=== PATIENT | male | born 1955 | race Caucasian/White ===

== ENCOUNTER 2021-03-31 09:55 | Emergency (ER) | payer MEDICARE, OTHER, SELFPAY ==
[2021-03-31 10:11] VITALS: BP 173/81; PULSE 67; RESP 18; TEMP 36.2; O2SAT 97; BMI 32.5
--- NOTE | 2021-03-31 10:34 | ED.GENADULT ---
HPI - General Adult General Chief complaint: Trauma Stated complaint: RT EYE BRUISING POST FALL OUT OF BED Time Seen by Provider: 03/31/21 10:19 Source: patient Mode of arrival: Ambulatory Limitations: no limitations History of Present Illness HPI narrative: Patient is a 65-year-old male. Is on Plavix. Is here for evaluation after being sent over from the walk-in clinic because of bruising around his right eye. He states that last evening he hit his head on the nightstand. He rolled out of bed and hit his head. There was no loss of consciousness. He reports no other injuries from the event. No neck pain. Related Data Home Medications Medication Instructions Recorded Confirmed amlodipine 10 mg tablet 10 mg PO QAM 03/31/21 03/31/21 atorvastatin 40 mg tablet 40 mg PO QAM 03/31/21 03/31/21 clopidogrel 75 mg tablet 75 mg PO QAM 03/31/21 03/31/21 cyclobenzaprine 5 mg tablet 5 mg PO DAILY 03/31/21 03/31/21 ezetimibe 10 mg tablet 10 mg PO BEDTIME 03/31/21 03/31/21 metoprolol succinate 200 mg 200 mg PO BEDTIME 03/31/21 03/31/21 tablet,extended release 24 hr sertraline 50 mg tablet 50 mg PO QAM 03/31/21 03/31/21 Allergies Allergy/AdvReac Type Severity Reaction Status Date / Time Sulfa (Sulfonamide Allergy Severe Shakiness Verified 03/31/21 10:14 Antibiotics) Review of Systems Constitutional Constitutional: Denies headache(s) Eyes Eyes: Reports as per HPI and Reports system reviewed and no additional complaints, except as documented Comments: No blurry vision, no double vision ENT Ears, Nose, Mouth, and Throat: Denies headache(s) Comments: No neck pain, no nose bleeds Musculoskeletal Comments: No neck pain, no joint pain Integumentary/Breasts Comments: Bruising around the right eye Neurologic Neurologic: Denies headache(s) Hematologic/Lymphatic Comments: On Plavix Patient History Medical History High cholesterol Social History Smoking Status: Former smoker Smoking Status: Former smoker alcohol intake frequency: 3 or more drinks per day Substance Use Type: does not use Exam Initial Vital Signs Initial Vital Signs: Vital Signs Temperature 97.1 F L 03/31/21 10:11 Pulse Rate 67 03/31/21 10:11 Respiratory Rate 18 03/31/21 10:11 Blood Pressure 173/81 H 03/31/21 10:11 Pulse Oximetry 97 03/31/21 10:11 Const General: cooperative, comfortable, well developed and well groomed HENKY Ears: hearing grossly normal bilaterally and TM's normal bilaterally Nose: external nose normal, nares normal and No nasal discharge Face and sinus: no maxillary instability and other Mouth: oral mucosae normal Throat: posterior oropharynx normal Eyes Pupils: PERRL EOM: EOM intact bilaterally Other: There is tenderness to palpation around the orbital rim however there are no step-offs. He does have a right-sided subconjunctival hemorrhage on the nasal aspect of the eye. There is no hyphema noted. No active bleeding. Resp Effort & Inspection: normal respiratory effort Cardio Palpation: normal PMI Back/Spine/Pelvis Cervical Spine: No cervical spinal tenderness Skin Other: Bruising around the right eye Neuro General: patient alert, patient awake and patient oriented x3 Extrem General: normal to inspection Scores GCS Stanton coma scale eye opening: Spontaneous Stanton coma scale verbal response: Orientated Stanton coma scale motor response: Obey commands Moira coma scale total score: 15 Course Vital Signs Vital signs: Vital Signs - 8 hr 03/31/21 10:11 Temperature 97.1 F L Pulse Rate 67 Respiratory Rate 18 Blood Pressure 173/81 H Pulse Oximetry 97 Medical Decision Making [facility] Narrative Medical decision making narrative: Patient does have ecchymosis around the right eye and also has a subconjunctival hemorrhage of the right eye. No hyphema noted. I have low suspicion for orbital rim fracture. I did discuss potentially doing a CT scan with the patient over he declined. He has no neck pain. No other injuries from the event. Will hold on further workup for now. He was given expected course of treatment and return precautions and follow-up instructions. He expressed understanding and agreement. Discharge Plan Departure Patient Disposition: Home Clinical Impression: Subconjunctival hemorrhage of right eye, Contusion of eye, right Instructions: Eye Contusion Activity Restrictions/Additional Instructions: I do recommend that you put ice over your right eye. The swelling and the bruising could worsen over the next couple days. I could end up causing your eye to be swollen shut. Contact your primary doctor for a follow-up. Return to the emergency department for any new or worsening symptoms Prescriptions: No Action atorvastatin 40 mg tablet 40 mg PO QAM RF: 0 metoprolol succinate 200 mg tablet extended release 24 hr 200 mg PO BEDTIME RF: 0 clopidogrel 75 mg tablet 75 mg PO QAM RF: 0 amlodipine 10 mg tablet 10 mg PO QAM RF: 0 sertraline 50 mg tablet 50 mg PO QAM RF: 0 ezetimibe 10 mg tablet 10 mg PO BEDTIME RF: 0 cyclobenzaprine 5 mg tablet 5 mg PO DAILY RF: 0 Referrals: Papa Andersen MD [Primary Care Provider] -
[2021-03-31 10:51] VITALS: BP 135/76; PULSE 63; RESP 14; O2SAT 99
== END 2021-03-31 10:53 | disposition home or self-care (01) ==
PROVIDERS: Emergency Provider Emergency Medicine; PCP Internal Medicine
DX: H11.31 Conjunctival hemorrhage, right eye (principal); S00.11XA Contusion of right eyelid and periocular area, initial encounter; W06.XXXA Fall from bed, initial encounter; Z79.01 Long term (current) use of anticoagulants
CPT/HCPCS: 99282; 99283

== ENCOUNTER → 2021-04-15 12:00 | Outpatient (CLI) | payer MEDICARE, OTHER, SELFPAY | PROVIDERS: PCP Internal Medicine; Referring Provider Internal Medicine; Visit Provider Internal Medicine | DX: R74.01 Elevation of levels of liver transaminase levels (principal); Z53.8 Procedure and treatment not carried out for other reasons ==

== ENCOUNTER → 2021-07-13 09:41 | Outpatient (CLI) | payer MEDICARE, OTHER, SELFPAY ==
--- NOTE | 2021-07-13 | DI.US.S_ITS ---
PROCEDURE: US ABDOMEN COMPLETE INDICATIONS: Elevation of levels of liver transaminase levels TECHNIQUE: Real-time scanning was performed of the abdominal and retroperitoneal organs, with image documentation. COMPARISON: None. FINDINGS: Liver: Liver is diffusely increased in echogenicity. Hypoechoic complex within the right lobe measuring 1.7 x 1.4 x 1.7 cm. Mild posterior acoustic enhancement is present. Gallbladder: No gallstones identified. Normal gallbladder wall. No pericholecystic fluid. Negative sonographic Whitfield sign. Biliary ducts: Intrahepatic bile ducts are non-dilated. Extrahepatic bile duct caliber measures 3.7 mm. Normal is 6-7 mm or less in diameter, or 10 mm or less post-cholecystectomy. Pancreas: Visualized portions of the pancreas are sonographically normal. Spleen: Spleen is enlarged at 13.6 cm in size and homogeneous in echotexture. Kidneys: Kidneys are normal in size and echotexture. Right kidney measures 10.5 cm long; left kidney measures 12.6 cm long. No hydronephrosis or nephrolithiasis. No solid masses. Aorta: Visualized aorta is normal in caliber at less than 3 cm. Iliacs: Proximal common iliac arteries are normal in caliber at less than 2.5 cm. IVC: Intrahepatic inferior vena cava is patent. Miscellaneous: No free abdominal fluid. IMPRESSION: 1. Increased hepatic echogenicity noted possibly related to hepatic steatosis but other sources of hepatocellular disease cannot be excluded. Recommend clinical correlation. 2. Hypoechoic complex mass involving the right lobe of the liver measuring up to 1.7 cm. Hepatic protocol MRI with and without contrast is recommended for further assessment. Dictated by: Shen ADAM Interpreted: Pranav Mike MD on 07/13/2021 at 10:15 Transcribed by: JOAN on 07/13/2021 at 10:18 Approved by: Pranav Mike M.D. on 07/13/2021 at 10:19
== END ==
PROVIDERS: PCP Internal Medicine; Referring Provider Internal Medicine; Visit Provider Internal Medicine
DX: K76.9 Liver disease, unspecified (principal); R74.01 Elevation of levels of liver transaminase levels
CPT/HCPCS: 76700

== ENCOUNTER → 2021-07-28 13:58 | Outpatient (CLI) | payer MEDICARE, OTHER, SELFPAY ==
--- NOTE | 2021-07-28 | DI.MRI.S_ITS ---
PROCEDURE: MR ABDOMEN WO/W CON INDICATIONS: HEPATIC PROTOCOL TECHNIQUE: Coronal HASTE, axial 2D FLASH in- and emm-hs-tadtb; axial breath-hold T2 FSE. Dynamic axial VIBE during the administration of contrast; post-contrast coronal VIBE or 2D FLASH with fat saturation from the hepatic dome to the iliac crests. Optional diffusion weighted imaging and ADC may be performed. COMPARISON: [facility], US, US ABDOMEN COMPLETE, 07/13/2021, 9:43. FINDINGS: Image quality: Good, however there is motion on a few sequences.. Lung bases: No basal pleural effusions. Heart size is normal. Solid organs: Mildly enlarged liver with moderate signal drop on T1 out of phase imaging. Centrally in the right hepatic lobe, segment VIII, 1.7 x 1.3 x 1.7 cm T2 hyperintense lesion is present with a thin wall and faint, wispy adjacent T2 parenchymal hyperintensity. Postcontrast, there is discontinuous peripheral arterial enhancement of the lesion with subsequent wash-in on venous phase and delayed phase sequences. There is peripheral hypoenhancement on venous and delayed phase sequences. No other liver lesions are present. The spleen is elongated measuring 14.7 cm in length. The gallbladder is decompressed. Biliary tree is nondilated. Pancreas is normal. There are no adrenal masses. Kidneys uptake IV contrast uniformly and symmetrically. No hydronephrosis. Nodes and vessels: No retroperitoneal or mesenteric adenopathy by size criteria. Aorta and inferior vena cava are normal in size. Bowel and peritoneum: Unenhanced bowel loops are normal in caliber. No free fluid. Bones and soft tissues: No ventral hernias. Bone marrow is normal in overall signal. IMPRESSION: 1. 1.7 cm hepatic T2 hyperintensity with characteristics most consistent with a cavernous hemangioma on a background of moderate hepatic steatosis. 2. Mild splenomegaly. Dictated by: Triny Montez M.D. on 07/28/2021 at 17:14 Approved by: Triny Montez M.D. on 07/28/2021 at 17:21
== END ==
PROVIDERS: PCP Internal Medicine; Referring Provider Internal Medicine; Visit Provider Internal Medicine
DX: K76.0 Fatty (change of) liver, not elsewhere classified (principal); D18.09 Hemangioma of other sites; R16.1 Splenomegaly, not elsewhere classified
CPT/HCPCS: 74183; A9579

== ENCOUNTER → 2022-03-10 13:39 | Outpatient (CLI) | payer MEDICARE, OTHER, SELFPAY ==
--- NOTE | 2022-03-10 | DI.RAD.S_ITS ---
PROCEDURE: XR KNEE RT 1TO2V INDICATIONS: CHRONIC PAIN OF BOTH KNEES TECHNIQUE: 1 views of the knee were acquired. COMPARISON: [facility], CR, XR KNEE LT 3V, 03/10/2022, 13:58. FINDINGS: Bones: No fractures or dislocations. No suspicious bony lesions. Mild narrowing of the medial femorotibial joint. Soft tissues: No suspicious soft tissue calcifications. IMPRESSION: Mild medial femoral tibial joint degeneration. Dictated by: Shen Pacheco [facility] Interpreted: Song Sorenson MD on 03/10/2022 at 14:14 Transcribed by: JAYNA on 03/10/2022 at 14:15 Approved by: Song Sorenson M.D. on 03/10/2022 at 21:25
--- NOTE | 2022-03-10 | DI.RAD.S_ITS ---
PROCEDURE: XR KNEE LT 3V INDICATIONS: CHRONIC PAIN OF BOTH KNEES TECHNIQUE: 3 views of the knee were acquired. COMPARISON: None. FINDINGS: Bones: No fractures or dislocations. No suspicious bony lesions. Mild tricompartmental knee joint space narrowing with minimal periarticular osteophyte formation. Soft tissues: Small joint effusion. No suspicious soft tissue calcifications. Vascular calcifications indicate atherosclerosis. IMPRESSION: Small knee joint effusion and mild tricompartmental knee joint degeneration. Dictated by: Shen Pacheco [facility] Interpreted: Song Sorenson MD on 03/10/2022 at 14:15 Transcribed by: JAYNA on 03/10/2022 at 14:16 Approved by: Song Sorenson M.D. on 03/10/2022 at 21:25
--- NOTE | 2022-03-10 13:42 | DI.US.S_ITS ---
PROCEDURE: US ABD AORTA ANEURYSM SCREEN INDICATIONS: Encounter for screening of cardiovascular disorder TECHNIQUE: Real time scanning was performed of the aorta and iliac arteries, with image documentation. COMPARISON: [facility], MR, MR ABDOMEN WO/W CON, 07/28/2021, 14:13. [facility], US, US ABDOMEN COMPLETE, 07/13/2021, 9:43. FINDINGS: Aorta: Proximal aortic diameter measures 2.7 cm. Mid-aorta measures 1.9 cm. Distal aortic diameter is 1.6 cm. Iliac arteries: Right common iliac artery measures 1.3 cm. Left common iliac artery measures 1.4 cm. IMPRESSION: No abdominal aortic aneurysm visualized. Dictated by: Shen Pacheco [facility] Interpreted: Song Sorenson MD on 03/10/2022 at 14:16 Transcribed by: JAYNA on 03/10/2022 at 14:17 Approved by: Song Sorenson M.D. on 03/10/2022 at 21:28
== END ==
PROVIDERS: PCP Internal Medicine; Referring Provider Internal Medicine; Visit Provider Internal Medicine
DX: Z13.6 Encounter for screening for cardiovascular disorders (principal); M25.561 Pain in right knee; M25.562 Pain in left knee; M25.462 Effusion, left knee; M17.0 Bilateral primary osteoarthritis of knee; G89.29 Other chronic pain
CPT/HCPCS: 73560; 73562; 76706

== ENCOUNTER → 2022-05-03 14:05 | Outpatient (CLI) | payer MEDICARE, OTHER, SELFPAY ==
[2022-05-03 16:32] LABS: COVID19 -Nasal RAPID Negative (Negative)
== END ==
PROVIDERS: PCP Internal Medicine; Visit Provider Surgery
DX: Z01.812 Encounter for preprocedural laboratory examination (principal); Z20.822 Contact with and (suspected) exposure to COVID-19
CPT/HCPCS: 87635; C9803

== ENCOUNTER 2022-05-04 11:44 | Day surgery (SDC) | payer MEDICARE, OTHER, SELFPAY ==
--- NOTE | 2022-05-04 | PATH_ITS ---
[facility] Accession Number: [id number] No. of containers..01 Tissue . 01 Material submitted: . colon - DESCENDING COLON MASS . 01 Diagnosis: Descending Colon Mass, Biopsy: Invasive adenocarcinoma, moderately differentiated. Lymphovascular invasion not identified. MRV 05/06/2022 1744 Local . 01 Comment: Immunohistochemical stains for DNA mismatch repair proteins are pending, and results will be issued in an addendum. . As part of routine cloth tester quality, Dr. Gonzalez has reviewed this case and agrees with the diagnosis of invasive adenocarcinoma. The finding of invasive adenocarcinoma was reported to the physician carbon blocks press operator, Dr. Resendez by Dr. Casillas on 05/07/2022. . 01 Electronically signed: . Boogie Casillas MD, PhD, Pathologist NPI- [id number] . 01 Gross description: . DESCENDING COLON MASS: Received in formalin are multiple fragment(s) of villaseñor, soft tissue measuring 1.0 x 0.2 x 0.1 cm in aggregate submitted entirely in 1 cassette(s) /CPE 05/05/2022 0753 Local . 01 Pathologist provided ICD-10: C18.6 . 01 CPT . 187316, L37302, K45366 Specimen Comment: A courtesy copy of this report has been sent to [phone] Performed at: 01 [facility] [address] [place] [address], [place], [place] [id number] MD Zoran Ventura MD Phone: [phone]
[2022-05-04 12:15] VITALS: BP 150/81; PULSE 80; RESP 16; TEMP 36.4; O2SAT 98; BMI 32.5
[2022-05-04] MEDS: LACTATED RINGERS 1,000 ML 42 ML IV (12:41)
--- NOTE | 2022-05-04 12:44 | PM.HP.1 ---
History of Present Illness History of Present Illness Chief complaint: [facility] Narrative: Positive Cologuard Patient History Medical History High cholesterol Family & Social History Social History: household members spouse Tobacco & Substance use: Smoking Status Former smoker alcohol intake frequency 3 or more drinks per day Substance Use Type does not use Meds Home Medications and Allergies Home Medications Medication Instructions Recorded Confirmed Type amlodipine 10 mg tablet 10 mg PO QAM 03/31/21 05/04/22 History atorvastatin 40 mg tablet 40 mg PO QAM 03/31/21 05/04/22 History ezetimibe 10 mg tablet 10 mg PO BEDTIME 03/31/21 05/04/22 History metoprolol succinate 200 mg 200 mg PO BEDTIME 03/31/21 05/04/22 History tablet,extended release 24 hr Allergies Allergy/AdvReac Type Severity Reaction Status Date / Time Sulfa (Sulfonamide Allergy Severe Shakiness Verified 05/04/22 12:09 Antibiotics) Exam Vital Signs (past 8 hours): - 05/04/22 12:15 Temperature 97.6 F Pulse Rate 80 Respiratory Rate 16 Blood Pressure 150/81 H Pulse Oximetry 98 Oxygen Delivery Method Room Air Oxygen Delivery Method Room Air Narrative Exam Narrative: Oropharynx free of lesions Chest clear to auscultation percussion Cardiac exam reveals no S3 or murmur Assessment & Plan Assessment & Plan narrative: Positive Cologuard need for colonoscopy follow-up. Risks, benefits, alternatives have been explained. Time Spent With Patient Critical Care time: I spent a total of [] minutes of critical care time on this patient's care today; this time is exclusive of procedural time.
--- NOTE | 2022-05-04 12:45 | PM.OP.COLON ---
Operative Date/Time/Diagnoses Date of procedure: 05/04/22 Pre-op diagnosis: See indication and findings Procedure & Clinicians Study performed: Colonoscopy Indications: Positive Cologuard Surgeon: Bernie Ortiz Procedure Notes Procedure in detail: After informed consent was obtained the patient was placed in left lateral decubitus position. The vide colonoscope was placed into the rectum slowly advanced cecum. Preparation was good. On slow withdrawal mucosa was carefully examined. The scope was removed. The patient tolerated procedure well. Blood loss none Complications none Sedation propofol Findings 1. Mass lesion at 42 cm just below splenic flexure. Unable to pass with the colonoscope. Multiple biopsies taken. 2. Otherwise negative he left-sided colonoscopy. Try to get in touch with Dr. Andersen at [facility]. Left message. Will talk to patient about where he would like procedure performed and further workup such as CT scan
[2022-05-04 13:09] VITALS: BP 127/76; PULSE 94; RESP 16; TEMP 36.5; O2SAT 94
[2022-05-04 13:15] VITALS: BP 128/77; PULSE 77; RESP 16; O2SAT 96
[2022-05-04 13:19] VITALS: BP 121/52; PULSE 74; RESP 17; TEMP 36.4; O2SAT 97
[2022-05-04 13:25] VITALS: BP 133/92; PULSE 76; RESP 18; TEMP 36.4; O2SAT 97
[2022-05-04 13:50] VITALS: BP 165/89; PULSE 70; RESP 16; TEMP 36.1; O2SAT 99
== END 2022-05-04 11:55 | disposition home or self-care (01) ==
PROVIDERS: PCP Internal Medicine; Referring Provider Internal Medicine Gastroenterology; Visit Provider Internal Medicine Gastroenterology
PROC: 0DJD8ZZ Inspection of Lower Intestinal Tract, Via Natural or Artificial Opening Endoscopic (ICD-10-PCS; CPT 45378; principal; 2022-05-04 12:30)
DX: C18.6 Malignant neoplasm of descending colon (principal)
CPT/HCPCS: 45331; J2704

== ENCOUNTER → 2022-05-09 12:07 | Outpatient (CLI) | payer MEDICARE, OTHER, SELFPAY ==
[2022-05-09 17:29] LABS: BUN Creatinine Ratio 11.7 (6-22); Blood Urea Nitrogen 9 mg/dL (9-20); Estimated Glomerular Filt Rate > 60 mL/min (>60)
[2022-05-09 17:57] LABS: Carcinoembryonic Antigen 1.2 ng/mL (0.1-3.0)
== END ==
PROVIDERS: PCP Internal Medicine; Referring Provider Surgery; Visit Provider Surgery
DX: K63.89 Other specified diseases of intestine (principal)
CPT/HCPCS: 36415; 82378; 82565; 84520

== ENCOUNTER → 2022-05-10 10:04 | Outpatient (CLI) | payer MEDICARE, OTHER, SELFPAY ==
--- NOTE | 2022-05-10 11:35 | DI.CT.S_ITS ---
PROCEDURE: CT CHEST ABD PEL W CON INDICATIONS: staging colon cancer TECHNIQUE: After the administration of oral and intravenous contrast, axial sections acquired from the supraclavicular neck to the pubic symphysis. Coronal and sagittal reformats were performed. For radiation dose reduction, the following was used: automated exposure control, adjustment of mA and/or kV according to patient size. COMPARISON: [facility], MR, MR ABDOMEN WO/W CON, 07/28/2021, 14:13. FINDINGS: Image quality: Excellent. CHEST: Lower Neck: No enlarged lymph nodes. Thyroid: Unremarkable. Axillae: No enlarged lymph nodes. Chest Wall: A 1.6 cm cutaneous low-density cystic lesion is present within the skin overlying the sternum (series 2/image 26). Finding may represent a sebaceous cyst. Lungs and Airways: No consolidation or suspicious nodules. Pleura: No pneumothorax or pleural effusions. Heart: Heart size is normal. There is a small low-density pericardial effusion. Thoracic Vessels: The aorta and pulmonary arteries demonstrate normal size. Mediastinum and Nicolasa: No enlarged lymph nodes. Esophagus: No wall thickening. No hiatal hernia. ABDOMEN: Liver: The liver demonstrates normal size and overall homogeneous enhancement. A hypervascular 1.8 x 1.5 by 1.3 cm nodule is present within hepatic segment . No other suspicious hepatic lesions. Gallbladder: Unremarkable. Biliary ducts: Unremarkable. Pancreas: Unremarkable. Spleen: Unremarkable. Adrenal Glands: Unremarkable. Kidneys and Ureters: Unremarkable. Stomach and Bowel: The stomach, small bowel and colon demonstrate overall normal caliber and wall thickness. Circumferential wall thickening and mild pericolonic fat stranding is present within the distal descending colon (series 2/image 109 and series 4/image 23). There are scattered sigmoid diverticula. No evidence for diverticulitis. Peritoneum: No abnormal intraperitoneal fluid. No free air. Ventral Wall: No hernia. Abdominal Nodes: No retroperitoneal or mesenteric adenopathy by size criteria. Vessels: Aorta and inferior vena cava are normal in size. There are scattered atheromatous calcifications throughout the aorta and iliac arteries bilaterally. PELVIS: Pelvic Organs: Unremarkable. Bladder: Unremarkable. Pelvic Nodes: No enlarged lymph nodes. Miscellaneous: No inguinal hernias are seen. Bones: Superior endplate compression deformities are present at L1, T11, T10 T4 and T3. No other suspicious bony lesions. IMPRESSION: 1. Circumferential wall thickening of the distal descending colon suspicious for primary colonic neoplasm. 2. No findings to suggest metastatic disease. 3. Hemangioma of the right hepatic lobe redemonstrated. 4. Multiple superior endplate compression deformities. No prior studies are available for comparison. Please correlate with history of trauma. These all may represent chronic changes. Dictated by: Deysi Glass M.D. on 05/10/2022 at 12:40 Approved by: Deysi Glass M.D. on 05/10/2022 at 12:50
== END ==
PROVIDERS: PCP Internal Medicine; Referring Provider Surgery; Visit Provider Surgery
DX: K63.89 Other specified diseases of intestine (principal); D18.09 Hemangioma of other sites; M43.9 Deforming dorsopathy, unspecified
CPT/HCPCS: 71260; 74177

== ENCOUNTER → 2022-05-30 10:11 | Outpatient (CLI) | payer MEDICARE, OTHER, SELFPAY ==
[2022-05-30 11:09] LABS: COVID19 -Nasal RAPID Negative (Negative)
== END ==
PROVIDERS: PCP Internal Medicine; Visit Provider Surgery
DX: Z20.822 Contact with and (suspected) exposure to COVID-19 (principal); Z01.812 Encounter for preprocedural laboratory examination
CPT/HCPCS: 87635; C9803

== ENCOUNTER 2022-05-31 06:07 | Inpatient (IN) | payer MEDICARE, OTHER, SELFPAY ==
[2022-05-27 09:39] VITALS: BMI 32.5
[2022-05-31] VITALS (14 sets, daily range): BP systolic 104–139; BP diastolic 61–89; PULSE 72–94; RESP 11–22; TEMP 35.9–36.9; O2SAT 92–97; BMI 30.7
--- NOTE | 2022-05-31 | PATH_ITS ---
[facility] Accession Number: [id number] . 01 Material submitted: . colon - LEFT COLON . 01 Clinical history: . SUTURE WALL PROXIMAL . 01 Diagnosis: Left Colon, Left Hemicolectomy: Invasive moderately differentiated adenocarcinoma with the following features: Tumor size: 4.9 x 3.8 cm. Tumor extent: Tumor invades through the muscularis propria into the pericolonic tissue. Macroscopic tumor perforation: Not identified. Lymphovascular invasion: Not identified. Perineural invasion: Identified. Treatment effect: No known presurgical therapy. Margins: All margins are negative for invasive carcinoma. Regional lymph nodes: Fifteen lymph nodes, negative for metastatic carcinoma (0/15). Distant metastasis: Not applicable. Pathologic staging classification: pT3, pN0. Additional findings: One tubular adenoma and diverticulosis. MRV 06/06/2022 1320 Local . 01 Electronically signed: . Awa Marquez MD, Pathologist NPI- [id number] . 01 Gross description: . The specimen is received in formalin labeled with the patient's name, , and left colon suture wall proximal, and consists of a previously opened oriented segment of colon with a suture designating proximal per the requisition, and measuring 16.8 cm in length and approximately 2.6 cm in average diameter. The proximal margin is inked blue, the distal margin is inked black, and the mesenteric margin is inked green. The serosa is mostly obscured by yellow lobulated adipose tissue with an area of puckering and induration that is inked orange. This area of puckering correlates to a portion of the lumen not previously opened by the surgeon. The pericolonic fat extends 7.8 cm from the serosal surface. Opening the remaining specimen reveals a raised annular sessile lesion measuring 4.9 x 3.8 cm. The lesion is located 6.0 cm from the nearest proximal margin and is widely free of all remaining margins. Sectioning reveals the lesion to extend beyond the wall and into the pericolonic fat. The remaining mucosa is significant for two villaseñor polypoid structures measuring 0.2 and 0.3 cm in greatest dimension located greater than 1 cm from all margins. Also identified are multiple diverticula measuring up to 0.7 cm in depth with no perforation grossly identified. The remaining mucosa is villaseñor and velvety with normal-appearing folds. Palpation of the pericolonic fat reveals 13 villaseñor lymph node candidates ranging from 0.3 to 1.2 cm in greatest dimension. Ethylbenzene Converter Operator sections are submitted as follows: A1: Proximal margin en face. A2-A3: Distal margin en face. A4: Ethylbenzene Converter Operator radial margin en face. A5-A6: Lesion to orange inked adipose. A7-A8: Lesion to normal. A9-A10: Ethylbenzene Converter Operator lesion. A11: Two polypoid structures. A12-A13: Ethylbenzene Converter Operator diverticula. A14: Ethylbenzene Converter Operator normal mucosa. A15: Single bisected lymph node candidate to reveal a possible diverticula with fecal material. A16: Four intact lymph node candidates. A17: Four intact lymph node candidates. A18: Four intact lymph node candidates. ([id number]) . Additional palpation reveals seven additional lymph node candidates ranging from 0.2 to 0.9 cm in greatest dimension. Sections are submitted as follows: . A19: Two intact lymph node candidates. A20: Three intact lymph node candidates. A21: Two intact lymph node candidates. ([id number]) /SILVESTRE 06/03/2022 1250 Local . 01 Pathologist provided ICD-10: K63.89, C18.6 . 01 CPT . 781093 Specimen Comment: A courtesy copy of this report has been sent to [phone] Performed at: 01 [facility] [address] [place] [address], [place], [place] [id number] MD Zoran Ventura MD Phone: [phone]
[2022-05-31] MEDS: LACTATED RINGERS 1,000 ML 100 ML IV ×5 (06:54→23:56)
--- NOTE | 2022-05-31 07:42 | PM.PREOP ---
Pre-operative Note Interval Note History & Physical reviewed/Exam performed by Physician: Yes Changes to H&P: No
[2022-05-31] MEDS: PIPERACILLIN/TAZO 4.5 GM in SODIUM CHLORIDE 0.9% 100 ML IV (08:21)
--- NOTE | 2022-05-31 08:52 | SUR.OPER ---
Lithotomy on padded OR bed. [place] Gate Pad Positioner under torso. Head on pillow, arms padded and tucked at sides. Legs secured in padded yellow fins stirrups.
[2022-05-31] MEDS: BUPIVACAINE 0.25% MDV 30 ML INJ (08:59)
[2022-05-31] MEDS: ACETAMINOPHEN IV 1,000 MG/100 ML VIAL 400 MG IV (09:11)
[2022-05-31] MEDS: PIPERACILLIN/TAZO 3.375 GM in SODIUM CHLORIDE 0.9% 100 ML IV (11:40)
--- NOTE | 2022-05-31 12:03 | DIET.CONS2 ---
Dietary Inpatient Consultation Note Admission Date: 05/31/2022 06:07 Pt with pre-op BG of 250 H. Pt with no reported DM, recc BG monitoring and consideration of A1c test to ensure optimal healing after hemicolectomy. Diet: 05/31/22 06:00 NPO Diet Diet Modifications: NPO Type: NPO after Midnight Electronically Signed by: Akilah Del Angel 05/31/22 12:03 Clinical Dietitian [address] [address]
--- NOTE | 2022-05-31 12:57 | PM.OP.1 ---
Operative Date/Time/Diagnoses Date of procedure: 05/31/22 Time of procedure: 12:57 Pre-op diagnosis: colon cancer Post-op diagnosis: same Procedure & Clinicians Procedure: laparoscopic assisted left hemicolectomy Same procedure as scheduled: Yes Indications: 66-year-old man with a positive Cologuard test who was found to adenocarcinoma within the descending colon no evidence of metastatic disease on staging imaging. Surgeon: Mayur Lockwood Customer Consultant: Franchesca Boggs Anesthesia Type: General Operative Notes Findings: large obstructive mass within the descending colon Specimen(s): other (left colon ) Estimated Blood Loss (mL): 100 Procedure in detail: Patient was brought to the operating room placed supine on the table. Bilateral lower extremity compression devices were applied. General anesthesia was induced he was intubated with an endotracheal tube. He received Zosyn prior to skin incision. Contreras catheter was sterilely placed. He was then placed into lithotomy position and appropriately padded. He was prepped and draped in sterile fashion. Time-out was performed. An infraumbilical incision was made the fascia was elevated grasped and sharply incised. The abdomen was entered atraumatically. Pneumo peritoneum was established. General inspection of the abdomen was made there was no evidence of metastatic disease to the liver or carcinomatosis. Additional working laparoscopic ports were placed, 5 mm suprapubic, a 11 mm trocar in the right lower quadrant. The mass was readily palpable in the descending colon just superior to the sigmoid colon. The descending colon was then retracted medially and the colon was taken down off the white line of Toldt to the splenic flexure. The dissection was then continued taking the attachments to the sigmoid colon off the pelvic sidewall. Here the iliac vessels were clearly observed as well as the ureter which was identified by its vermiculation. The ureter was then swept posteriorly out of harm's way. The descending colon was then put on stretch and the PREET pedicle was identified and skeletonized. A limited laparotomy incision was made. The bowel was divided using the MISAEL stapler at least 5 cm distal to the mass. The pedicle was then ligated twice with silk suture. The mesentery to the specimen was then taken with the LigaSure. The proximal division of the colon was then performed with a 2nd load of the MISAEL stapler blue load at the splenic flexure. Next a hand-sewn end to end anastomosis was performed. The back row was placed 1st with interrupted silk suture. The staple lines were then resected and the inner layer was then formed with a running 3-0 Vicryl in both directions. Finnally the outer layer was imbricated with interrupted silk suture. The anastomosis was then tested for patency as well as leak with insufflation and visualized with the colonoscope there was no evidence of leak. The anastomosis was well perfused and without tension. The abdomen was then irrigated with several L of sterile saline. Hemostasis was checked. The abdomen fascia was then closed with running 1. PDS followed by Vicryl and Monocryl. Patient was extubated transferred to recovery in stable condition. Complications: none Post-operative Condition: stable Disposition: Acute Care
[2022-05-31] MEDS: KETOROLAC 30 MG/ML VIAL IV ×2 (13:13→18:29)
[2022-05-31] MEDS: HYDROMORPHONE 1 MG INJ IV (14:00)
--- NOTE | 2022-05-31 18:31 | PC.NURSE ---
Pt arrived from PACU at 1345 this afternoon. A&OX3, VSS, on 3 LNC. He reports pain5/10 to abdomen. Dressings to abdomen c/d/i/ LR at 100 ml/hr. Pt tolerating clear liquids well. Pain controlled well with toradol and prn pain medications. BS+4 hypoactive. Encouraged to use IS, 02 saturation 89-94 on 3LNC. at bedside tonight reviewing plan of care. Hurt draining clear yellow urine. Plan to d/c hurt tomorrow. Continuous monitoring.
[2022-05-31] MEDS: OXYCODONE IR 5 MG TABLET PO (20:09)
[2022-05-31] MEDS: EZETIMIBE 10 MG TABLET PO (20:10)
[2022-05-31] MEDS: METOPROLOL ER 50 MG TABLET 200 MG PO (20:10)
--- NOTE | 2022-05-31 21:48 | PC.NURSE ---
While sleeping pt desat to 88% w 3L NC, RT called and placed oximask 4L, sat in high 90s. Pt educated to wear oximask while sleeping. aquasil dressing w/ serosanguinous drainage, 2 incisions w/ glue visible, abdominal band on. Denies flatus, hypoactive BT. Tolerating clear liquids.
[2022-06-01] VITALS (9 sets, daily range): BP systolic 95–124; BP diastolic 48–72; PULSE 58–72; RESP 16–18; TEMP 36.1–36.8; O2SAT 96–100
[2022-06-01] MEDS: KETOROLAC 30 MG/ML VIAL IV ×4 (01:09→18:06)
[2022-06-01 05:47] LABS: Add Manual Diff / Slide Review NO; Basophils Absolute Auto 0 /uL (0-100); Basophils Percent Auto 0.2 % (0-2); Eosinophils Absolute Auto 0 /uL (0-450); Hematocrit 34.7 % (41-53); Hemoglobin 11.8 g/dL (13.5-17.5); Lymphocytes Absolute Auto 1100 /uL (1100-4500); Lymphocytes Percent Auto 11.6 % (25-40); Monocytes Absolute Auto 900 /uL (0-900); Monocytes Percent Auto 9.4 % (3-14); Neutrophils Absolute Auto 7400 /uL (1500-7000); Neutrophils Percent Auto 78.8 % (50-75); Platelet Count 151 X10^3/uL (150-400); Red Blood Cell Count 3.81 X10^6/uL (4.5-5.9); Red Cell Distribution Width 13.3 % (11.6-14.8); White Blood Cell Count 9.4 X10^3/uL (4.5-11.0)
[2022-06-01 05:58] LABS: BUN Creatinine Ratio 16.9 (6-22); Blood Urea Nitrogen 14 mg/dL (9-20); Calcium 7.6 mg/dL (8.4-10.2); Carbon Dioxide 27 mmol/L (22-32); Chloride 102 mmol/L (98-107); Estimated Glomerular Filt Rate > 60 mL/min (>60); Glucose 134 mg/dL (80-110); HEMOLYSIS < 15 (0-50); Magnesium 1.7 mg/dL (1.6-2.3); Phosphorous 3.1 mg/dL (2.3-3.7); Potassium 3.9 mmol/L (3.4-5.1); Sodium 136 mmol/L (137-145)
--- NOTE | 2022-06-01 08:51 | P.PN_ITS ---
Subjective Subjective Date Patient Seen: 06/01/22 Time Patient Seen: 08:53 Interval history: POD 1 L hemicolectomy for cancer Pain is well controlled with current regimen No acute overnight events No flatus or BM yet Tolerating clears Exam Vital Signs (past 8 hours): - 06/01/22 04:00 06/01/22 07:39 06/01/22 08:00 Temperature 98.3 F 97.8 F Pulse Rate 62 58 L Respiratory Rate 18 16 Blood Pressure 110/59 L 95/50 L Pulse Oximetry 98 97 Oxygen Delivery Method Room Air Oxygen Flow Rate 3.5 0 Oxygen Delivery Method Room Air Oxygen Flow Rate 0 Narrative Exam Narrative: Gen-Adult man alert and oriented no distress Chest-Non labored resp Abdomen-Soft mild distention appropriately tender to palpation Objective Labs Result Diagrams: 06/01/22 05:27 06/01/22 05:27 Labs: Laboratory Results - last 24 hr 06/01/22 06/01/22 05:27 05:27 WBC 9.4 RBC 3.81 L Hgb 11.8 L Hct 34.7 L MCV 91.0 MCH 31.0 MCHC 34.0 RDW 13.3 Plt Count 151 Neut % (Auto) 78.8 H Lymph % (Auto) 11.6 L [place] % (Auto) 9.4 Eos % (Auto) 0.0 L Baso % (Auto) 0.2 Neut # (Auto) 7400 H Lymph # (Auto) 1100 [place] # (Auto) 900 Eos # (Auto) 0 Baso # (Auto) 0 Sodium 136 L Potassium 3.9 Chloride 102 Carbon Dioxide 27 BUN 14 Creatinine 0.83 Estimated GFR > 60 BUN/Creatinine Ratio 16.9 Glucose 134 H Calcium 7.6 L Phosphorus 3.1 Magnesium 1.7 PFSH Medical History (Updated 05/27/22 @ 10:27 by Ratna Barbosa RN) CAD (coronary artery disease) CVA (cerebral vascular accident) (2010) High cholesterol HTN (hypertension) Myocardial infarction (01/1996) SHAY (obstructive sleep apnea) Surgical History (Updated 05/27/22 @ 09:43 by Ratna Barbosa RN) Hx of discectomy (01/2007) Hx of fusion of cervical spine (2014) Stented coronary artery (1995) Social History household members: spouse Smoking Status: Former smoker alcohol intake: current Assessment & Plan Post-op Postoperative Procedures: Procedures Operation Date: 05/31/22 07:45 Actual Procedure Side Surgeon p Laparoscopic Assisted Hemicolectomy Left Mayur Lockwood MD Postoperative status narrative: 66 M POD 1 sp lap assisted Left hemicolectomy. Doing well no acute concerns. -Continue clear liquids until return of bowel function -Remove hurt -SCDs and pLovenox for VTE prophylaxis -Out of bed and ambulate Quality VTE Deep Vein Thrombosis/Pulmonary Embolism Present on Admission: No
[2022-06-01] MEDS: ENOXAPARIN 40 MG/0.4 ML SYRINGE SUBCUT (08:58)
[2022-06-01] MEDS: ATORVASTATIN 20 MG TABLET 40 MG PO (09:01)
--- NOTE | 2022-06-01 11:54 | PC.NURSE ---
Day shift: Dr Lockwood aware of Pt's BP this AM (95/55). Remains asymptomatic. No changes and AM BP meds not given per MD.
--- NOTE | 2022-06-01 12:55 | PT.IIE ---
Current Diagnoses Other specified diseases of intestine (05/31/22) Surgery Performed Operation Date: 05/31/22 07:45 Actual Procedures p Laparoscopic Assisted Hemicolectomy(Left) - Mayur Lockwood MD Surgical History (Last Updated 05/27/22 @ 09:43 by Ratna Barbosa, RN) Hx of discectomy (01/2007) Hx of fusion of cervical spine (2014) Stented coronary artery (1995) Medical History (Last Updated 05/27/22 @ 10:27 by Ratna Barbosa RN) CAD (coronary artery disease) CVA (cerebral vascular accident) (2010) High cholesterol HTN (hypertension) Myocardial infarction (01/1996) SHAY (obstructive sleep apnea) Physical Therapy Inpatient Evaluation/Re-Eval M1 PT/OT-IP Prior Functional Status Start: 06/01/22 12:55 Freq: NEEDED Status: Active Protocol: Document 06/01/22 12:55 DLM (Rec: 06/01/22 13:07 DL [id number]) Medical Review Prior Functional Status Medical History Reviewed Yes Diet/Fluid Consistency Regular Communication WNL Mobility and Gait Independent without device, community distances Activities of Daily Living and IADL's Independent, drives, works on projects around house, likes to refinish furniture Social History Household Members spouse Living Arrangements House Number of Floors (Floors) Two Floors Number of Stairs To Enter/Railing? 2 with rail Home Environment Standard Height Toilet Home Equipment Grab Bars In Shower Employment Status Retired Additional Social History Comment retired contractor M2 PT-IP Current Condition Start: 06/01/22 12:55 Freq: NEEDED Status: Active Protocol: Document 06/01/22 12:55 DLM (Rec: 06/01/22 13:07 DL [id number]) Physical Therapy Current Condition Current Condition Evaluation Date 06/01/22 Treatment Diagnosis hemicolectomy, impaired mobility/gait Onset Date 05/31/22 M3 PT-IP Subjective Start: 06/01/22 12:55 Freq: NEEDED Status: Active Protocol: Document 06/01/22 12:55 DLM (Rec: 06/01/22 13:07 DL [id number]) Subjective Physical Therapy Visit Type Type Initial Evaluation Visit Start Time 12:30 Visit Stop Time 12:55 Total Visit Minutes 25 Number of SCRUM PROJECT MANAGER Visits 0 Physical Therapy Visit Comments Patient Comments He reports having low abdominal pain that gets a little worse with walking Patient Goals discharge home Therapy Pain Assessment Pain When Pain Assessed During Mobility Pain Present Pain Present Pain Reported Location abdomen Intensity 5 Scale Used Numeric (0 - 10) Description Aching,Tender,With Movement Pain Behaviors Guarding,Wincing Pain Management Techniques Re-positioning,Timing of Activity with Medications M4 PT-IP Mobility and Gait Start: 06/01/22 12:55 Freq: NEEDED Status: Active Protocol: Document 06/01/22 12:55 DLM (Rec: 06/01/22 13:07 [facility] [id number]) PT-Bed Mobility Assessment Supine to Sit Supine to Sit Independent Scooting Scooting to Edge of Bed Independent PT-Transfer Assessment Sit to and From Stand Sit to and from Stand Independent,Use of Upper Extremities Equipment Transfer Assistive Device Gait Belt Transfers Transfer Destination Bed,Chair Transfer Technique Stand Step Pivot Transfer Ability Level of Assist Independent,Use of Upper Extremities Comments Mobility Comments He had mild light-headedness with initial sitting up on edge of bed that resolved with a short seated rest break. Pt left up in recliner for lunch with nursing aware. Gait Assessment Gait Gait Assistance Required: Standby Assistance Distance (Feet) 250 Able to Maintain Weight Bearing Status Yes During Gait Assistive Devices Assistive Device Gait Belt Gait Deviations General Gait Pattern Wide Based Gait Factors Limiting Gait Function Factors Limiting Gait Function Decreased Activity Tolerance, Pain Comments Gait Comments he reports a wide base of support is normal for him, no dizziness during gait, increased pain from 3/10 at rest to 5/10 with gait Stair Climbing Assessment Evaluation Level of Assist On Stairs Independent Devices Stair Climbing Assistive Devices Left Railing,Right Railing Technique/Endurance Stair Climbing Direction Ascend and Descend Stair Climbing Technique Step Over Step Number of Steps Climbed 3 Query Text: Stair Climbing Set # Repetitions (reps) 1 Comments Stair Climbing Comments no increased pain reported doing stairs PT-Balance Assessment Sitting Balance and Reactions Static Sitting Balance Ability Good Dynamic Sitting Balance Ability Good Standing Balance and Reactions Static Standing Balance Ability Good Dynamic Standing Balance Ability Good Device Used none M5 PT-IP Objective Assessments Start: 06/01/22 12:55 Freq: NEEDED Status: Active Protocol: Document 06/01/22 12:55 DLM (Rec: 06/01/22 13:07 [facility] [id number]) Orientation Orientation/Cognition Level of Alertness Alert Orientation Name,Age,Birthday,Month,Date, Year,Day of Week,Place, Situation Language Function Ability No Deficits Noted Safety Awareness Understands Safety Issues Memory Description No Deficits Noted Gross Range of Motion Upper Extremity ROM Assessment Within Functional Limits Lower Extremity ROM Assessment Within Functional Limits Strength Upper Extremity Strength Assessment Within Functional Limits Lower Extremity Strength Assessment Within Functional Limits Comments Strength Comments functional strength limited by abdominal pain post-op Coordination Assessment Gross Coordination Gross Coordination WNL Sensation Assessment Sensation Gross Sensation WNL Comments Sensation Comments he reports intermittent numbness right foot associated with back problems but none at this time Muscle Tone Muscle Tone WNL Yes M6 PT-IP Treatment Start: 06/01/22 12:55 Freq: NEEDED Status: Active Protocol: Document 06/01/22 12:55 DLM (Rec: 06/01/22 13:07 DL [id number]) Physical Therapy Treatment Education Education Provided Safety Other Treatments Other Treatment Performed education to increase activity gradually at home and avoid lifting, education also included getting in/out of bed from sidelying M7 PT-IP Assessment and Plan Start: 06/01/22 12:55 Freq: NEEDED Status: Active Protocol: Document 06/01/22 12:55 DLM (Rec: 06/01/22 13:07 DL [id number]) PT Summary Assessment and Plan Potential Rehabilitation Potential Good Status of Condition at Evaluation Evolving Summary Impairments Pain,Activity Tolerance Assessment Summary Will is resting in bed in left sidelying. He shows good effort with physical therapy this visit. He had a mild increase in his abdominal pain with gait that improved when back in sitting. Pt up to the recliner for lunch. He shows good awareness of safety issues at this time. He demonstrates a safe gait pattern. Recommend he ambulate 2-3 times a day with nursing supervision while he is hospitalized. No skilled physical therapy needs identified at this time. He has modified movement patterns at this time due to his post- op pain but they are functional for discharge home when medically cleared. Frequency of Treatment Frequency Of Treatment Discharge Treatment Plan Other Recommendations and Next Treatment pt is safe to mobilize/ Focus ambulate with nursing staff Precautions Abdominal Surgery Precautions Log Roll,Lifting Restrictions, Gait Belt above Incisional Area Recommendations To Nursing Amount of Assist Needed Standby Assistance Discharge Recommendations PT Discharge Recommendations Home with Assistance Other Discharge Recommendations supportive Transportation Needs at Discharge Private Vehicle
--- NOTE | 2022-06-01 15:00 | CM.DANOTE ---
Patient is a 66 yo male who was admitted on 05/31/22 for Colon Surgery. Pt has M[place] and [place] for insurance and his PCP is Dr. Papa Andersen. EMR was reviewed. Per Surgeon, pt with colon CA and tolerated surgical intervention well and to ambulate and not yet stable for d/c likely today. Per PT, recommending safe d/c home with spouse and no further inpt PT needed at this time. SW met bedside with pt and explained role and pt confirms he lives in [place] with his and is retired contractor and remains active and independent, drives, does not use DME for ambulation. Pt states spouse is available for assist if needed but pt does not anticipate any needs at d/c and preference is home tomorrow if stable. Plan: SW to follow for plan of home via spouse POV and outpt f/u and any further identified discharge planning needs. BROCK Pinto Discharge Planning/Care Management CM Discharge Assessment Start: 06/01/22 14:59 Freq: Status: Active Protocol: Document 06/01/22 14:59 BF (Rec: 06/01/22 15:00 BF [id number]) Discharge Planning Assessment Assigned Rotary Envelope Machine Operator BROCK Stevenson DPOA/Assigned Designee Name informally spouse Maria Isabel Advance Directives? No Advance Directives on File No History Provided By Patient,Medical Record Has Patient been admitted in last 30 No days? Prior Living Arrangements House Household Members spouse Type of transporation used prior to Drives own vehicle admit Independent with ADL's Yes Is patient alert and oriented? Yes Caregiver for Another No Barriers to Discharge No Discharge Plan Home Transportation Arrangement spouse to provide transport at d/c Referrals Initiated None needed Whiteboard Updated in Patient Room with Yes name and ext. # of Rotary Envelope Machine Operator Review Status In Process Please Provide Date Initial DC 06/01/22 Assessment Was Performed Next Review Type Continued Stay Review Pre-Anesthesia Assessment Start: 05/27/22 09:39 Freq: Status: Active Protocol: Document 05/27/22 09:39 CAB (Rec: 05/27/22 10:27 CAB [id number]) Pre-Anesthesia Assessment Preferred Name Fred Patient Information Reviewed Via Phone Assessment Assessment Completed With Patient Comment COVID screen @ 05/30/22 Primary Care Provider Papa Andersen Seen Specialist in Last 12 Months Yes Specialist Seen General surgeon,Orthopedist Primary Language Lao Psychological Tests Sales Agent Required No Height 190.5 cm Weight 117.934 kg Body Mass Index (BMI) 32.5 Hearing Ability Normal Visual Assist None Dentition Type Full- Upper & Lower Barriers to Learning None Hx Anesthesia Reactions No: Pt denies any history or diagnosis of SHAY, snores, does not stop breathing Hx Family Anesthesia Reaction No Hx Malignant Hyperthermia No Hx Blood Transfusions No Hx Blood Transfusion Reaction No Anesthesia Review Requested No Gaming Dealer No alcohol intake frequency 3 or more drinks per day Alcohol Intake Frequency Other: Pt reports prior 6/day, last drink 05/08/22, lorazepam per surgeon prn Smoking Status Former smoker how long ago did patient quit smoking Quit 2013 Substance Use Type does not use Pain Present Pain Reported Musculoskeletal Symptoms Arthralgias,Joint Pain History of Falling (Recent or History of No ) Patient is completely paralyzed or No completely immobile Mental Status Oriented to own ability Is patient on oxygen? No Does patient have MCNAMARA/SOB No Hx Sleep Apnea No CPAP/BIPAP use not prescribed Currently Taking a Beta Varghese Yes: Metoprolol Hx Chest Pain Yes: With MT '96, nothing since Hx SOB No Hx Syncope or Dizziness No Anti-Coagulant Therapy No Has a Santa'S Helper No Cardiac Testing No Hx Pacemaker/ICD No Pacemaker Rep Required? No Diet Type At Home Regular Dysphagia No Gastrointestinal Symptoms Bloating Urinary Catheter Present No Hx Urinary Self Catheterization No Diabetes No Presence of External or Internal Medical Yes: Cardiac stent x 1, Devices cervical hardware Received a COVID vaccine? Yes Received all doses? Yes Marital Status Lives With spouse Current Living Arrangements House Number of Floors (Floors) Two Floors Support System Spouse Does the Patient Have Assistance After Yes Surgery Patient Discharge Plan Description Return Home Comment Pt advised 2-3 day length of stay per surgeon Feels Safe in Current Environment Yes Been Physically Hurt or Threatened By a No Person in Current Environment Do you have thoughts of harming yourself None or others? Are you currently considering suicide? No Do you have a plan to hurt yourself or No Plan others? Do You Have Any Spiritual Beliefs That No May Affect Your HC Choices? Do You Have Any Cultural Practices That No May Affect Your HC Choices? Who Can We Speak to About Patient's Care Family, friends Identifying Code for Release of Patient Declines to issue Information Health Care Proxy/Next of Kin Maria Isabel () Health Care Proxy Emergency Contact Name Maria Isabel () Emergency Contact Advance Directives? No Power of Valet Runner No PAC Instructions Medications to take/avoid,No ETOH/petroleum product on skin DOS,NPO,Pre-surgical wash, Sensory aids,Sturdy shoes/ comfortable clothes,Do not bring valuables and remove jewelry
[2022-06-01] MEDS: EZETIMIBE 10 MG TABLET PO (22:08)
[2022-06-01] MEDS: OXYCODONE IR 5 MG TABLET PO (22:08)
[2022-06-01] MEDS: SODIUM CHLORIDE 0.9% FLUSH 10 ML IV (22:09)
[2022-06-02] MEDS: KETOROLAC 30 MG/ML VIAL IV ×2 (02:52→08:00)
[2022-06-02 03:18] VITALS: BP 116/68; PULSE 61; RESP 19; TEMP 36.2; O2SAT 95
[2022-06-02] MEDS: OXYCODONE IR 5 MG TABLET PO ×2 (06:33→12:50)
[2022-06-02 06:48] LABS: Add Manual Diff / Slide Review NO; Basophils Absolute Auto 0 /uL (0-100); Basophils Percent Auto 0.4 % (0-2); Eosinophils Absolute Auto 200 /uL (0-450); Eosinophils Percent Auto 3.9 % (2-4); Hematocrit 31.7 % (41-53); Hemoglobin 10.8 g/dL (13.5-17.5); Lymphocytes Absolute Auto 1500 /uL (1100-4500); Lymphocytes Percent Auto 28.2 % (25-40); Mean Corpuscular HGB Conc 34.1 % (30-36); Mean Corpuscular Hemoglobin 30.7 PG (26-34); Monocytes Absolute Auto 500 /uL (0-900); Monocytes Percent Auto 9.1 % (3-14); Neutrophils Absolute Auto 3200 /uL (1500-7000); Neutrophils Percent Auto 58.4 % (50-75); Platelet Count 133 X10^3/uL (150-400); Red Blood Cell Count 3.52 X10^6/uL (4.5-5.9); Red Cell Distribution Width 13.5 % (11.6-14.8); White Blood Cell Count 5.5 X10^3/uL (4.5-11.0)
[2022-06-02 06:58] LABS: BUN Creatinine Ratio 11.6 (6-22); Blood Urea Nitrogen 8 mg/dL (9-20); Calcium 8.1 mg/dL (8.4-10.2); Carbon Dioxide 27 mmol/L (22-32); Chloride 106 mmol/L (98-107); Estimated Glomerular Filt Rate > 60 mL/min (>60); Glucose 107 mg/dL (80-110); HEMOLYSIS < 15 (0-50); Magnesium 1.9 mg/dL (1.6-2.3); Phosphorous 2.1 mg/dL (2.3-3.7); Sodium 140 mmol/L (137-145)
[2022-06-02] MEDS: AMLODIPINE 5 MG TABLET 10 MG PO (07:58)
[2022-06-02] MEDS: ENOXAPARIN 40 MG/0.4 ML SYRINGE SUBCUT (07:58)
[2022-06-02] MEDS: ATORVASTATIN 20 MG TABLET 40 MG PO (07:58)
[2022-06-02] MEDS: SODIUM CHLORIDE 0.9% FLUSH 10 ML IV (07:59)
[2022-06-02 08:00] VITALS: BP 129/72; PULSE 69; RESP 16; TEMP 36; O2SAT 97
[2022-06-02] MEDS: SODIUM,POTASSIUM PHOSPHATES PACKET 2 EACH PO (11:01)
--- NOTE | 2022-06-02 11:22 | PM.PNPO.1 ---
Subjective Subjective Date Patient Seen: 06/02/22 Time Patient Seen: 11:22 Interval history: No acute overnight events. Several bowel movements. Ambulating well in the hallways. Pain is well controlled with oral medication and IV Toradol. Exam Vital Signs (past 8 hours): - 06/02/22 08:00 Temperature 96.8 F L Pulse Rate 69 Respiratory Rate 16 Blood Pressure 129/72 Pulse Oximetry 97 Oxygen Delivery Method Room Air Oxygen Flow Rate 0 Narrative Exam Narrative: General adult male alert oriented no acute distress Abdomen soft minimally distended. Midline incision with dressing intact no drainage. Laparoscopic port incisions clean dry intact Objective Labs Result Diagrams: 06/02/22 06:21 06/02/22 06:21 Labs: Laboratory Results - last 24 hr 06/02/22 06/02/22 06:21 06:21 WBC 5.5 RBC 3.52 L Hgb 10.8 L Hct 31.7 L MCV 90.0 MCH 30.7 MCHC 34.1 RDW 13.5 Plt Count 133 L Neut % (Auto) 58.4 D Lymph % (Auto) 28.2 [place] % (Auto) 9.1 Eos % (Auto) 3.9 Baso % (Auto) 0.4 Neut # (Auto) 3200 Lymph # (Auto) 1500 [place] # (Auto) 500 Eos # (Auto) 200 Baso # (Auto) 0 Sodium 140 Potassium 4.0 Chloride 106 Carbon Dioxide 27 BUN 8 L Creatinine 0.69 Estimated GFR > 60 BUN/Creatinine Ratio 11.6 Glucose 107 Calcium 8.1 L Phosphorus 2.1 L D Magnesium 1.9 PFSH Medical History (Updated 05/27/22 @ 10:27 by Ratna Barbosa RN) CAD (coronary artery disease) CVA (cerebral vascular accident) (2010) High cholesterol HTN (hypertension) Myocardial infarction (01/1996) SHAY (obstructive sleep apnea) Surgical History (Updated 05/27/22 @ 09:43 by Ratna Barbosa RN) Hx of discectomy (01/2007) Hx of fusion of cervical spine (2014) Stented coronary artery (1995) Social History household members: spouse Smoking Status: Former smoker alcohol intake: current Assessment & Plan Post-op Postoperative Procedures: Procedures Operation Date: 05/31/22 07:45 Actual Procedure Side Surgeon p Laparoscopic Assisted Hemicolectomy Left Mayur Lockwood MD Postoperative status narrative: 66-year-old male postoperative day 2 status post laparoscopic assisted left hemicolectomy for colon cancer. He is doing well recovering from the operation appropriately. He has had return of bowel function post his pain is well controlled and he is ambulatory. He is appropriate for discharge today. Pathology is pending Quality VTE Deep Vein Thrombosis/Pulmonary Embolism Present on Admission: No
--- NOTE | 2022-06-02 11:30 | PM.DS.1 ---
History of Present Illness History of Present Illness Date Patient Seen: 06/02/22 Time Patient Seen: 11:31 Chief complaint: INPT Narrative: 66-year-old man found to have a adenocarcinoma within the left colon on a diagnostic colonoscopy. Staging imaging demonstrated no evidence of distant metastasis. He presented to the hospital for elective left hemicolectomy. Discharge Providers Provider Date of admission: 05/31/22 06:07 Discharge Date: 06/02/22 Primary care physician: Papa Andersen MD Consults: 05/31/22 06:00 Consult to Discharge Planning Routine Comment: 05/31/22 16:32 Consult to Physical Therapy Evaluate & Treat Comment: Physician Instructions: Evaluate and Treat Discharge provider: Mayur Lockwood MD Summary Hospital Course Discharge Diagnosis: Colon cancer Hospital Course: Patient underwent a laparoscopic assisted left hemicolectomy May 31, 2022. There was no evidence of distant metastatic disease. His postoperative course was unremarkable. He had return of bowel function, he was tolerant of a regular diet and ambulatory at discharge. Status at Discharge Cognitive/behavioral status at discharge: oriented Functional status at discharge: independent ambulation Overall status at discharge: patient is progressing back to baseline Time Spent with Patient Time spent: Greater than 30 minutes Exam Vital Signs (past 8 hours): - 06/02/22 08:00 Temperature 96.8 F L Pulse Rate 69 Respiratory Rate 16 Blood Pressure 129/72 Pulse Oximetry 97 Oxygen Delivery Method Room Air Oxygen Flow Rate 0 Narrative Exam Narrative: General adult male alert oriented no acute distress Abdomen soft minimally distended. Midline incision with dressing intact no drainage. Laparoscopic port incisions clean dry intact Objective Labs Result Diagrams: 06/02/22 06:21 06/02/22 06:21 Labs: Laboratory Results - last 24 hr 06/02/22 06/02/22 06:21 06:21 WBC 5.5 RBC 3.52 L Hgb 10.8 L Hct 31.7 L MCV 90.0 MCH 30.7 MCHC 34.1 RDW 13.5 Plt Count 133 L Neut % (Auto) 58.4 D Lymph % (Auto) 28.2 [place] % (Auto) 9.1 Eos % (Auto) 3.9 Baso % (Auto) 0.4 Neut # (Auto) 3200 Lymph # (Auto) 1500 [place] # (Auto) 500 Eos # (Auto) 200 Baso # (Auto) 0 Sodium 140 Potassium 4.0 Chloride 106 Carbon Dioxide 27 BUN 8 L Creatinine 0.69 Estimated GFR > 60 BUN/Creatinine Ratio 11.6 Glucose 107 Calcium 8.1 L Phosphorus 2.1 L D Magnesium 1.9 PFSH Medical History (Updated 05/27/22 @ 10:27 by Ratna Barbosa RN) CAD (coronary artery disease) CVA (cerebral vascular accident) (2010) High cholesterol HTN (hypertension) Myocardial infarction (01/1996) SHAY (obstructive sleep apnea) Surgical History (Updated 05/27/22 @ 09:43 by Ratna Barbosa RN) Hx of discectomy (01/2007) Hx of fusion of cervical spine (2014) Stented coronary artery (1995) Social History household members: spouse Smoking Status: Former smoker alcohol intake: current Discharge Plan Discharge Plan Patient Disposition: Home Provider Discharge Comment: -Okay to shower tomorrow after removing abdominal dressing. No need to replace the dressing however a piece of gauze can be placed across the incision if there is drainage. -Do not submerge wounds in water until seen in follow-up. -No lifting >20 lbs x 4 weeks. -Walking only for exercise for 4 weeks. -No driving while taking narcotics. Discharge orders & Medications Prescriptions: New docusate sodium [Colace] 100 mg capsule 100 mg PO BID Qty: 30 0RF ibuprofen 200 mg tablet 400 mg PO Q6H Qty: 60 0RF oxycodone 5 mg tablet 5 mg PO Q6H PRN (Reason: pain) Qty: 30 0RF acetaminophen [Tylenol] 325 mg capsule 650 mg PO QID PRN (Reason: pain) Qty: 60 0RF Continued atorvastatin 40 mg tablet 40 mg PO QAM Label Comments: TAKE 1 TABLET BY MOUTH EVERY DAY metoprolol succinate 200 mg tablet extended release 24 hr 200 mg PO BEDTIME Label Comments: TAKE 1 TABLET BY MOUTH DAILY amlodipine 10 mg tablet 10 mg PO QAM Label Comments: TAKE 1 TABLET BY MOUTH EVERY DAY ezetimibe 10 mg tablet 10 mg PO BEDTIME Label Comments: TAKE 1 TABLET BY MOUTH EVERY NIGHT AT BEDTIME trazodone 50 mg tablet 50 mg PO DAILY diazepam 10 mg tablet 10 mg PO DAILY Discontinued metronidazole 500 mg tablet 1,000 mg PO .COMPLEX Qty: 4 0RF Rx Instructions: 1,000 mg PO 1 g PO; TAKE 2 tabs at 2 PM, and 10 PM the day prior to surgery; Follow up/Referrals: Papa Andersen MD [Primary Care Provider] - Diet/Activity/Treatments Diet: Regular Skin/Wound/Dressing Care Report to your healthcare provider any signs of infection, such as:: chills, fever, increased pain, unusual drainage and unusual redness Visit Report/Discharge Packet Instructions: Colectomy -- Open Surgery, DI for Colectomy, DI for Laparoscopy, [facility]: Wound Care Stand Alone Forms: Surgery Discharge Discharge Data Primary Care Provider: Papa Andersen Quality VTE Deep Vein Thrombosis/Pulmonary Embolism Present on Admission: No
--- NOTE | 2022-06-02 13:10 | PC.NURSE ---
Day shift: Paperwork signed and all questions answered. Pt has all personal belongings. MD script sent to Pt's pharmacy. Spouse in room for teachings. Lap sites remain CDI. Taken to car via WC by MIREYA Villasenor. Spouse is driving them home to [place].
== END 2022-06-02 13:11 | disposition home or self-care (01) | DRG 331 ==
PROVIDERS: Admitting Provider Surgery; PCP Internal Medicine; Referring Provider Surgery; Visit Provider Surgery
PROC: 0DTE0ZZ Resection of Large Intestine, Open Approach (ICD-10-PCS; principal; 2022-05-31 07:45)
DX: C18.6 Malignant neoplasm of descending colon (principal); E78.5 Hyperlipidemia, unspecified; I25.10 Atherosclerotic heart disease of native coronary artery without angina pectoris; I10 Essential (primary) hypertension; Z95.5 Presence of coronary angioplasty implant and graft; Z20.822 Contact with and (suspected) exposure to COVID-19; Z87.891 Personal history of nicotine dependence
CPT/HCPCS: 36415; 44204; 80048; 82962; 83735; 84100; 85025; 87635; 94760; 94762; 97162; C9803; J0131; J1100; J1170; J1650; J1885; J2250; J2274; J2405; J2543; J2704; J3010

== ENCOUNTER 2022-09-13 08:39 | Day surgery (SDC) | payer MEDICARE, OTHER, SELFPAY ==
[2022-05-31 15:53] VITALS: BMI 30.7
--- NOTE | 2022-09-13 | PATH_ITS ---
[facility] Accession Number: [id number] No. of containers..05 Tissue . 01 Material submitted: . PART A: rectum - RECTUM POLYP PART B: colon - TRANSVERSE COLON POLYP PART C: colon - ASCENDING COLON POLYP PART D: colon - TRANSVERSE COLON BIOPSY 40CM PART E: sigmoid colon - SIGMOID COLON POLYP . 01 Diagnosis: A. Rectum, Polypectomy: Hyperplastic polyp. . B. Transverse Colon, Polypectomy: Tubular adenoma. . C. Ascending Colon, Polypectomy: Sessile serrated adenoma. . D. Transverse Colon, 40 cm, Biopsy: Colonic mucosa with no significant diagnostic abnormality. Negative for active inflammation, granulomas, dysplasia, and malignancy. . E. Sigmoid Colon, Polypectomy: Hyperplastic polyp. [facility] 09/16/2022 1044 Local . 01 Electronically signed: . Elizabeth Gonzalez MD, Pathologist NPI- [id number] . 01 Gross description: . Part A: RECTUM POLYP: Received in formalin is 1 fragment(s) of villaseñor, soft tissue measuring 0.5 x 0.3 x 0.2 cm submitted entirely in 1 cassette(s) Part B: TRANSVERSE COLON POLYP: Received in formalin are 2 fragment(s) of villaseñor, soft tissue measuring 0.6 x 0.3 x 0.2 cm to 0.3 x 0.2 x 0.1 cm submitted entirely in 1 cassette(s) Part C: ASCENDING COLON POLYP: Received in formalin are multiple fragment(s) of villaseñor, soft tissue measuring 0.9 x 0.8 x 0.1 cm in aggregate submitted entirely in 1 cassette(s) Part D: TRANSVERSE COLON BIOPSY 40CM: Received in formalin is 1 fragment(s) of villaseñor, soft tissue measuring 0.2 x 0.1 x 0.1 cm submitted entirely in 1 cassette(s) Part E: SIGMOID COLON POLYP: Received in formalin are multiple fragment(s) of villaseñor, soft tissue measuring 1.7 x 0.6 x 0.1 cm in aggregate submitted entirely in 1 cassette(s) /CPE 09/14/2022 0838 Local . 01 Pathologist provided ICD-10: D12.2, D12.3, K63.5 . 01 CPT . 185409, 953982, 727285, 582338, 807409 Specimen Comment: A courtesy copy of this report has been sent to [phone] Performed at: 01 [facility] [address] [address], [place], [place] [id number] MD Zoran Ventura MD Phone: [phone]
[2022-09-13 09:46] VITALS: BP 134/79; PULSE 76; RESP 16; TEMP 36.6; O2SAT 97; BMI 32.5
[2022-09-13] MEDS: LACTATED RINGERS 1,000 ML 200 ML IV (10:01)
--- NOTE | 2022-09-13 10:21 | PM.HP.1 ---
History of Present Illness History of Present Illness Date Patient Seen: 09/13/22 Time Patient Seen: 10:21 Chief complaint: SDC Narrative: 67-year-old male who underwent a left hemicolectomy for colon cancer May 2022. Final staging was T3 N0 15 nodes were negative. He had an incomplete colonoscopy in the fall of 2021 which identified the mass however the scope was unable to be passed beyond the level of the mass. Patient History Medical History CAD (coronary artery disease) CVA (cerebral vascular accident) (2010) High cholesterol HTN (hypertension) Myocardial infarction (01/1996) SHAY (obstructive sleep apnea) Surgical History H/O colectomy (~2021) Hx of discectomy (01/2007) Hx of fusion of cervical spine (2014) Stented coronary artery (1995) Family & Social History Social History: household members spouse Tobacco & Substance use: Smoking Status Former smoker alcohol intake former alcohol intake frequency 3 or more drinks per day Substance Use Type does not use Meds Home Medications and Allergies Home Medications Medication Instructions Recorded Confirmed Type amlodipine 10 mg tablet 10 mg PO QAM 03/31/21 09/13/22 History atorvastatin 40 mg tablet 40 mg PO QAM 03/31/21 09/13/22 History ezetimibe 10 mg tablet 10 mg PO BEDTIME 03/31/21 09/13/22 History metoprolol succinate 200 mg 200 mg PO BEDTIME 03/31/21 09/13/22 History tablet,extended release 24 hr trazodone 50 mg tablet 50 mg PO PRN PRN Insomnia 05/31/22 09/13/22 History acetaminophen 325 mg capsule 650 mg PO QID PRN pain #60 caps 06/02/22 09/13/22 Rx (Tylenol) ibuprofen 200 mg tablet 400 mg PO Q6H #60 tabs 06/02/22 09/13/22 Rx sodium,potassium,mag sulfates 17.5 See Rx Instructions PO .COMPLEX 08/10/22 09/13/22 Rx gram-3.13 gram-1.6 gram oral soln #354 mL (Suprep Bowel Prep Kit) aspirin 81 mg PO DAILY 09/13/22 09/13/22 History meloxicam 7.5 mg tablet 7.5 mg PO PRN PRN Pain (Scale 09/13/22 09/13/22 History Score 4-6) Allergies Allergy/AdvReac Type Severity Reaction Status Date / Time Sulfa (Sulfonamide AdvReac Severe Fever, Verified 09/13/22 09:39 Antibiotics) Shakes Exam Vital Signs (past 8 hours): - 09/13/22 09:46 Temperature 97.8 F Pulse Rate 76 Respiratory Rate 16 Blood Pressure 134/79 Pulse Oximetry 97 Oxygen Delivery Method Room Air Oxygen Delivery Method Room Air Narrative Exam Narrative: General adult man alert oriented no acute distress Assessment & Plan Assessment and plan (1) Colon cancer: Qualifiers: Colon location: descending Qualified Code(s): C18.6 - Malignant neoplasm of descending colon Status: Acute Assessment & Plan narrative: 67-year-old man with a history of colon cancer P T3 N0 here for surveillance colonoscopy. Technical details were discussed. Risks, benefits, alternatives explained. Risks including but not limited to myocardial infarction, aspiration, bleeding, pain, missed lesion, incomplete examination, need for further radiographic studies, colonic perforation, and need for major abdominal surgery were discussed. All questions were answered to their satisfaction, and they are in agreement with this plan. Time Spent With Patient Critical Care time: I spent a total of [] minutes of critical care time on this patient's care today; this time is exclusive of procedural time.
[2022-09-13 11:20] VITALS: BP 110/83; PULSE 84; RESP 14; TEMP 36.8; O2SAT 95
--- NOTE | 2022-09-13 11:20 | PM.OP.COLON ---
Operative Date/Time/Diagnoses Date of procedure: 09/13/22 Time of procedure: 11:20 Pre-op diagnosis: History of Colon cancer Post-op diagnosis: other (Colonic polyps x4) Procedure & Clinicians Study performed: Colonoscopy and polypectomy Same procedure as scheduled: Yes Indications: 67-year-old man status post left hemicolectomy for obstructing colon cancer T3 N0 here for surveillance less than 1 year postop Surgeon: Mayur Lockwood Procedure Notes Procedure in detail: The history and physical was performed/updated and the patient is ASA class is 2. The procedure was discussed in detail with the patient. Potential risks complications including infection, bleeding, missed diagnosis, perforation, need for surgery, and were explained. Their questions were answered and informed consent was obtained. Patient was brought to the procedure room and placed standard monitoring equipment. The patient's vital signs were monitored continuously throughout the entire procedure. Prior to starting time-out was performed. The patient was placed in the left lateral recumbent position. Procedural sedation was administered by anesthesia. Examination began with a thorough inspection of the perianal area there was no evidence of fissures, fistulae, external hemorrhoids or cutaneous malignancy. The colonoscopy scope was then placed into the anal canal and was advanced to the cecum, which was identified by the ileocecal valve, the appendiceal orifice and the confluence of the taenia. The scope was then slowly withdrawn examining colon thoroughly in all directions, irrigating it of any residual stool. Rectum-8 mm polyp was removed with cold snare Sigmoid-1 cm polyp removed cold snare Transverse colon-1 cm polyp removed with cold snare. Mucosa within the transverse colon biopsied with forceps Ascending colon-1 cm polyp removed with cold snare The patient tolerated the procedure well. They will be discharged once criteria are met. The prep was of good/excellent quality. The withdrawl time was 10 minutes. Specimen(s): other (Polyps from the rectum, sigmoid, transverse and ascending colon. Transverse colon biopsy) Impression: Colonic polyps x4 Post-procedure Recommendations: Colonoscopy in 1 year and High fiber diet Disposition: same day surgery
[2022-09-13 11:25] VITALS: BP 110/65; PULSE 86; RESP 12; O2SAT 97
[2022-09-13 11:29] VITALS: BP 119/75; PULSE 72; RESP 14; O2SAT 96
[2022-09-13 11:31] VITALS: BP 125/84; PULSE 75; RESP 16; TEMP 36.1; O2SAT 95
== END 2022-09-13 11:45 | disposition home or self-care (01) ==
PROVIDERS: PCP Internal Medicine; Referring Provider Surgery; Visit Provider Surgery
PROC: 0DJD8ZZ Inspection of Lower Intestinal Tract, Via Natural or Artificial Opening Endoscopic (ICD-10-PCS; CPT 45378; principal; 2022-09-13 09:45)
DX: Z12.11 Encounter for screening for malignant neoplasm of colon (principal); Z85.038 Personal history of other malignant neoplasm of large intestine; K62.1 Rectal polyp; D12.3 Benign neoplasm of transverse colon; D12.2 Benign neoplasm of ascending colon
CPT/HCPCS: 45385; 45380; J2704

== ENCOUNTER → 2024-01-03 12:34 | Outpatient (CLI) | payer MEDICARE, OTHER, SELFPAY ==
[2022-05-31 15:53] VITALS: BMI 30.7
--- NOTE | 2024-01-03 12:37 | DI.ECHO.S_ITS ---
[facility]+ [facility] : : [address] : : [place] : : [address] : : Phone: [phone] Echocardiogram Report + + :Name: TAQUERIA GONSALVES Study Date: 01/03/2024 Height: 75 in : :Hospital ReadingLocation: Weight: 260 lb : : Gender: Male BSA: 2.5 m2 : :: 1955 Age: 68 yrs BP: 124/86 mmHg: :Reason For Study: PERICARDIAL EFFUSION : :Ordering Physician: STAN, : :JOE Performed By: Chrystal Hernandez : :Referring: JOE FRANCO : + + Interpretation Summary 1) Normal left ventricular size, wall motion, and systolic function (EF 60- 65%). 2) Normal right ventricular size and function. 3) No significant valvular abnormalities. 4) There is a moderate pericardial effusion that is circumferential. There are no echocardiographic or Doppler indications for cardiac tamponade. 5) No prior Echo available for comparison. Procedure: A two-dimensional transthoracic echocardiogram with color flow and Doppler was performed. The study quality was technically difficult. There is no prior echocardiogram noted for this patient. The patient was in sinus bradycardia with heart rates between 58-64 bpm during the exam. Left Ventricle: The left ventricle is normal in size. Left ventricular wall thickness is mildly increased. The ejection fraction is estimated to be 60- 65%. Left ventricular systolic function appears normal without focal wall motion abnormalities. Right Ventricle: The right ventricle is grossly normal size. The right ventricular systolic function is normal. Atria: The left atrial size is normal. Right atrial size is normal. There is no Doppler evidence for an interatrial shunt. Mitral Valve: The mitral valve is normal in structure and function. There is no mitral regurgitation noted. Aortic Valve: The aortic valve is trileaflet. The aortic valve opens well. There is no aortic valve stenosis. No aortic regurgitation is present. Tricuspid Valve: The tricuspid valve is normal in structure and function. There is a trace or physiologic amount of tricuspid regurgitation. Pulmonary artery pressures cannot be estimated because of the lack of a measurable TR jet velocity. Pulmonic Valve: The pulmonic valve is not well visualized. There is trace pulmonic regurgitation. Great Vessels: The aortic root is normal size. The dimensions of the ascending aorta are normal. The IVC is of normal diameter and collapses greater than 50% with a sniff. This suggests a low right atrial pressure of 3 mm Hg. Pericardium/ Pleura There is a moderate pericardial effusion that is circumferential. There are no echocardiographic or Doppler indications for cardiac tamponade. There is no pleural effusion. MMode/2D Measurements & Calculations LVIDd: 5.7 cm LVOT diam: 2.4 cm LVIDs: 3.6 cm Ao root diam: 3.4 cm FS: 36.5 % asc Aorta Diam: 3.8 cm IVSd: 1.1 cm LVPWd: 1.2 cm LV hull. diameter/BSA (cm/m^2): 2.3 LV sys. diameter/BSA (cm/m^2): 1.5 LA A2 area: 19.0 cm2 RA long axis: 5.4 cm LA A4 area: 18.2 cm2 RA area: 15.4 cm2 LA length (vol): 5.8 cm RA vol: 37.6 ml LA vol: 50.8 ml RA : 15.3 ml/m2 LA vol index: 20.7 ml/m2 IVC diam: 1.5 cm RVD1 (basal): 4.2 cm TAPSE: 2.4 cm Doppler Measurements & Calculations Ao V2 max: 127.2 cm/sec LVOT Max Brent: 76.3 cm/sec Ao V2 mean: 93.1 cm/sec LV V1 max P.3 mmHg Ao max P.5 mmHg LV V1 VTI: 16.1 cm Ao mean P.7 mmHg SALLIE(I,D): 2.5 cm2 Ao V2 VTI: 28.7 cm SALLIE(V,D): 2.6 cm2 sev ratio: 0.56 SALLIE indexed to BSA (cm^2/m^2): 1.0 MV E max brent: 55.7 cm/sec PA V2 max: 89.8 cm/sec MV A max brent: 69.7 cm/sec PA V2 mean: 61.7 cm/sec MV E/A: 0.80 PA mean P.7 mmHg Med Peak E' Brent: 6.6 cm/sec PA pr(Accel): -4.9 mmHg E/E' med: 8.5 MV dec time: 0.32 sec SV(LVOT): 71.0 ml Reading Physician:02:36 PM
== END ==
LOC: ECHO 12:36
PROVIDERS: PCP Internal Medicine; Referring Provider Internal Medicine Cardiovascular Disease; Visit Provider Internal Medicine Cardiovascular Disease
DX: I25.10 Atherosclerotic heart disease of native coronary artery without angina pectoris (principal); I31.39 Other pericardial effusion (noninflammatory); I25.2 Old myocardial infarction; Z95.5 Presence of coronary angioplasty implant and graft
CPT/HCPCS: 93306

== ENCOUNTER → 2024-01-05 08:02 | Outpatient (CLI) | payer MEDICARE, OTHER, SELFPAY ==
[2022-05-31 15:53] VITALS: BMI 30.7
[2024-01-05 09:05] LABS: Hematocrit 44.8 % (41-53); Hemoglobin 15.3 g/dL (13.5-17.5); Mean Corpuscular HGB Conc 34.2 % (30-36); Mean Corpuscular Hemoglobin 30.5 PG (26-34); Mean Corpuscular Volume 89.1 fL (80-100); Platelet Count 152 X10^3/uL (150-400); Red Blood Cell Count 5.02 X10^6/uL (4.5-5.9); Red Cell Distribution Width 13.7 % (11.6-14.8); White Blood Cell Count 7.1 X10^3/uL (4.5-11.0)
[2024-01-05 09:28] LABS: BUN Creatinine Ratio 14.1 (6-22); Blood Urea Nitrogen 11 mg/dL (9-20); Calcium 8.9 mg/dL (8.4-10.2); Carbon Dioxide 29 mmol/L (22-32); Chloride 106 mmol/L (98-107); Cholesterol 88 mg/dL (140-199); Estimated Glomerular Filt Rate > 60 mL/min (>60); Glucose 104 mg/dL (80-110); HDL Cholesterol 30 mg/dL (40-60); HEMOLYSIS < 15 (0-50); LDL Cholesterol Calculated 42 mg/dL (<100); Potassium 4.7 mmol/L (3.4-5.1); Sodium 138 mmol/L (137-145); Triglycerides 81 mg/dL (35-150)
== END ==
LOC: LAB 08:04
PROVIDERS: PCP Physician Assistant; Referring Provider Internal Medicine Cardiovascular Disease; Visit Provider Internal Medicine Cardiovascular Disease
DX: I25.10 Atherosclerotic heart disease of native coronary artery without angina pectoris (principal); E78.5 Hyperlipidemia, unspecified
CPT/HCPCS: 36415; 80048; 80061; 85027

== ENCOUNTER → 2024-05-26 11:07 | Outpatient (CLI) | payer MEDICARE, OTHER, SELFPAY ==
[2022-05-31 15:53] VITALS: BMI 30.7
--- NOTE | 2024-05-26 11:09 | DI.MRI.S_ITS ---
PROCEDURE: MR SHOULDER RT WO CON INDICATIONS: IMPINGEMENT SYNDROME RT SHOULDER TECHNIQUE: Noncontrast oblique coronal T2 fast spin echo with fat saturation, oblique sagittal T1 spin echo and T2 fast spin echo with fat saturation, axial T1 spin echo and T2 fast spin echo with fat saturation through the shoulder. COMPARISON: [facility] [place], CR, XR SHOULDER 2+ VIEWS BILATERAL, 05/20/2024, 16:02. FINDINGS: Image quality: Excellent. Rotator cuff: Moderate grade articular surface partial-thickness tear involving anterior to mid fibers of distal supraspinatus at its insertion on the humeral head is seen extending to musculotendinous junction. Distal infraspinatus tendinosis and low-grade articular surface partial-thickness tear at its insertion on the humeral head is also seen. Low to moderate grade partial-thickness tear involving superior fibers of distal subscapularis is also noted. No full-thickness rotator cuff tendon rupture. Sagittal images demonstrate very mild supraspinatus muscle atrophy. Bones and bursae: No bone marrow contusions or fractures. Moderate acromioclavicular joint osteoarthritic changes are seen with joint space narrowing and downward osteophyte formation depressing the musculotendinous junction of supraspinatus. Type 2 acromion without an os acromiale. Small amount subacromial subdeltoid bursal fluid is seen, no gross loose bodies. Capsule and soft tissues: Labrum is grossly intact. The long head of the biceps tendon appears thickened with intrasubstance T2 hyperintense signal at the level of humeral head. The rotator interval appears normal, without fibrosis. The coracohumeral ligament is normal in thickness. IMPRESSION: 1. Moderate grade articular surface partial-thickness tear involving distal supraspinatus extending to musculotendinous junction. Low-grade articular surface partial-thickness tear involving distal infraspinatus. Low to moderate grade partial-thickness tear involving superior fibers of distal subscapularis. No full-thickness rotator cuff tendon rupture. Mild supraspinatus muscle atrophy. 2. Moderate acromioclavicular joint osteoarthritis. No fracture or dislocation. Small amount of subacromial subdeltoid bursal fluid, no loose bodies. 3. No evidence of focal labral tear. 4. Tendinosis and low-grade intrasubstance partial-thickness tear involving proximal long head of biceps. Dictated by: Dawson Hannah M.D. on 05/27/2024 at 15:14 Approved by: Dawson Hannah M.D. on 05/27/2024 at 15:18
== END ==
PROVIDERS: PCP Physician Assistant; Referring Provider Orthopaedic Surgery; Visit Provider Orthopaedic Surgery
DX: S46.111A Strain of muscle, fascia and tendon of long head of biceps, right arm, initial encounter (principal); M19.011 Primary osteoarthritis, right shoulder; M75.111 Incomplete rotator cuff tear or rupture of right shoulder, not specified as traumatic; M75.41 Impingement syndrome of right shoulder
CPT/HCPCS: 73221

== ENCOUNTER → 2024-12-25 08:17 | Outpatient (CLI) | payer MEDICARE, OTHER, SELFPAY ==
[2022-05-31 15:53] VITALS: BMI 30.7
[2024-12-25 09:01] LABS: Hematocrit 45.7 % (41-53); Mean Corpuscular HGB Conc 35.1 % (30-36); Mean Corpuscular Hemoglobin 31.5 PG (26-34); Mean Corpuscular Volume 89.9 fL (80-100); Platelet Count 154 X10^3/uL (150-400); Red Blood Cell Count 5.09 X10^6/uL (4.5-5.9); Red Cell Distribution Width 13.7 % (11.6-14.8); White Blood Cell Count 6.6 X10^3/uL (4.5-11.0)
[2024-12-25 09:24] LABS: BUN Creatinine Ratio 12.5 (6-22); Blood Urea Nitrogen 10 mg/dL (9-20); Calcium 9.4 mg/dL (8.4-10.2); Carbon Dioxide 26 mmol/L (22-32); Chloride 104 mmol/L (98-107); Cholesterol 91 mg/dL (140-199); Estimated Glomerular Filt Rate > 60 mL/min (>60); Glucose 111 mg/dL (70-99); HDL Cholesterol 29 mg/dL (40-60); HEMOLYSIS < 15 (0-50); LDL Cholesterol Calculated 42 mg/dL (<100); Potassium 4.4 mmol/L (3.4-5.1); Sodium 138 mmol/L (137-145); Triglycerides 102 mg/dL (35-150)
== END ==
PROVIDERS: PCP Physician Assistant; Referring Provider Internal Medicine Cardiovascular Disease; Visit Provider Internal Medicine Cardiovascular Disease
DX: I25.10 Atherosclerotic heart disease of native coronary artery without angina pectoris (principal)
CPT/HCPCS: 36415; 80048; 80061; 85027